=== PATIENT | male | born 1985 | race American Indian/Alaskan Native ===

== ENCOUNTER 2017-02-28 15:15 | Outpatient (CLI) | payer OTHER ==
--- NOTE | 2017-03-01 07:48 | XRay Report ---
LUMBOSACRAL SPINE, 3 VIEWS: History: Low back pain. Findings: The vertebral bodies, disk spaces and posterior elements are intact. No compression deformity or malalignment. Minimal degenerative disc disease and facet arthropathy is noted at all levels. The SI joints are symmetric and unremarkable. Impression: Minimal lumbar spondylosis. No acute process.
== END 2017-02-28 15:16 | disposition home or self-care (01) ==
LOC: XRAY 15:15
PROVIDERS: ATTEND Internal Medicine
DX: Z02.71 Encounter for disability determination (principal); M47.896 Other spondylosis, lumbar region; M51.36 Other intervertebral disc degeneration, lumbar region; M12.88 Other specific arthropathies, not elsewhere classified, other specified site
CPT/HCPCS: 72100